=== PATIENT | male | born 1975 | race Hispanic/Latino ===

== ENCOUNTER → 2018-02-25 | Outpatient (CLI) | payer OTHER ==
--- NOTE | 2018-02-25 17:41 | Diagnostic Imaging Report ---
PROCEDURE:L-SPINE 3V, additional two-view radiographs of the sacrum. COMPARISON:None. INDICATIONS:LOWER BACK PAIN FINDINGS: There is mild retrolisthesis of L5 on S1. The vertebral bodies are otherwise aligned. No evidence of fractures, lytic or blastic lesions. Mild degenerative disc and facet degenerative changes are present at L5-S1. The sacroiliac joints are unremarkable. Additional radiographs the sacrum demonstrate no evidence of fracture or malalignment. CONCLUSION: No acute osseous abnormality in the lumbar spine or sacrum. Mild degenerative disc and facet degenerative changes at L5-S1. Dictated by: CA ALVARADO M.D. on 02/25/2018 at 17:45 Electronically approved by: CA ALVARADO M.D. on 02/25/2018 at 17:45
--- NOTE | 2018-02-25 17:41 | Diagnostic Imaging Report ---
PROCEDURE:SACRUM X-RAY TECHNIQUE:Two view radiographs of the sacrum. INDICATION:Pain COMPARISON:None. CONCLUSION: Please refer to the dictation from the concurrently performed lumbar spine radiographs for sacral radiograph dictation. Dictated by: CA ALVARADO M.D. on 02/25/2018 at 17:46 Electronically approved by: CA ALVARADO M.D. on 02/25/2018 at 17:46
== END ==
LOC: RAD 16:35
PROVIDERS: ATTEND Internal Medicine
DX: M47.816 Spondylosis without myelopathy or radiculopathy, lumbar region (principal); M54.5 Low back pain
CPT/HCPCS: 72100; 72220